=== PATIENT | female | born 1935 | race Caucasian/White ===

== ENCOUNTER 2017-05-19 12:40 | Emergency (ER) | payer MEDICARE, MEDICAID ==
--- NOTE | 2017-05-19 13:54 | RAD ---
FOUR VIEWS LEFT KNEE: COMPARISON: None. HISTORY: Left knee pain after fall. FINDINGS: Four views of the left knee show no evidence of acute fracture or dislocation. Moderate diffuse soft issue swelling is seen. No knee effusion is seen. Mild tricompartment osteophytes are seen consist ent with osteoarthritis. IMPRESSION: Left knee osteoarthritis without acute osseous abnormality. POS: [facility]
== END 2017-05-19 14:30 | disposition home or self-care (01) ==
LOC: MADERS 12:40
DX: S80.02XA Contusion of left knee, initial encounter (principal); I25.2 Old myocardial infarction; E11.9 Type 2 diabetes mellitus without complications; E78.00 Pure hypercholesterolemia, unspecified; Z86.73 Personal history of transient ischemic attack (TIA), and cerebral infarction without residual deficits; W19.XXXA Unspecified fall, initial encounter

== ENCOUNTER 2018-02-14 16:17 | Emergency (ER) | payer MEDICARE, MEDICAID ==
[2018-02-14] MEDS ORDERED: Acetaminophen/Codeine 30-300mg Tablet ONE (17:12)
== END 2018-02-14 17:25 | disposition home or self-care (01) ==
LOC: MADERS 16:17
DX: M54.5 Low back pain (principal); M10.9 Gout, unspecified; E03.9 Hypothyroidism, unspecified; I25.10 Atherosclerotic heart disease of native coronary artery without angina pectoris; I10 Essential (primary) hypertension; E78.00 Pure hypercholesterolemia, unspecified; I25.2 Old myocardial infarction; E11.9 Type 2 diabetes mellitus without complications; E78.5 Hyperlipidemia, unspecified; Z79.4 Long term (current) use of insulin; Z86.73 Personal history of transient ischemic attack (TIA), and cerebral infarction without residual deficits; Z79.899 Other long term (current) drug therapy
CPT/HCPCS: 36416; 99283

== ENCOUNTER 2019-01-24 22:47 | Emergency (ER) | payer MEDICARE, MEDICAID ==
[2019-01-24 23:26] LABS: #Basophils 0.2 thou/uL (0.0-0.2); #Eosinphils 0.2 thou/uL (0.0-0.7); #Lymphocytes 4.9 thou/uL (1.20-3.40); #Monocytes 0.4 thou/uL (0.11-0.59); #Neutrophils 6.4 thou/uL (1.40-6.50); %Basophils 1.3 % (0.0-1.0); %Eosinophils 1.7 % (0.0-10.0); %Lymphocytes 40.9 % (21.0-51.0); %Monocytes 3.1 % (0.0-10.0); Hemoglobin 15.2 g/dL (12.0-16.0); Mean Corpuscular HGB CONC 31.6 g/dL (32.0-36.0); Mean Corpuscular Hemoglobin 27.8 pg (27.0-31.0); Mean Corpuscular Volume 87.8 fL (78.0-98.0); Mean Platelet Volume 7.6 fL (7.4-10.4); Platelet Count 255 thou/uL (130-400); RBC Distribution Width 14.6 % (11.5-14.5); Red Blood Cell (RBC) Count 5.47 mill/uL (4.20-5.40)
[2019-01-24] MEDS ORDERED: cefTRIAXone\\ROCEPHIN 2 GM VIAL ONE (23:40)
[2019-01-24] MEDS ORDERED: Sodium Chloride 0.9% 2,000 ML ONE (23:40)
[2019-01-24] MEDS ORDERED: Sodium Chloride 0.9% 100 ML ONE (23:40)
--- NOTE | 2019-01-24 23:40 | RAD ---
XR Chest 1 View Portable HISTORY: Syncope. Altered mental status. COMPARISON: 01/07/2013 study. FINDINGS: Heart size is within normal limits. There are atherosclerotic changes of the aorta. The keila gs are clear of infiltrates. The bones are demineralized. IMPRESSION: No active intrathoracic disease. Stable chest.
[2019-01-25 00:07] LABS: ALT (SGPT) 11 U/L (8-55); AST (SGOT) 12 U/L (5-34); Albumin 3.9 g/dL (3.4-4.8); Alkaline Phosphatase 247 U/L (40-110); Anion Gap 19 mmol/L (10-20); BUN (Urea Nitrogen) 10 mg/dL (9.8-20.1); Bilirubin, Total 0.8 mg/dL (0.2-1.2); Calc. Creatinine Clearance 0 mL/min (70-130); Calcium 10.1 mg/dL (7.8-10.44); Carbon Dioxide 21 mmol/L (23-31); Chloride 95 mmol/L (98-107); Estimated GFR-MDRD 34; Globulin 3.6 g/dL (2.4-3.5); Glucose 406 mg/dL (83-110); Potassium 3.4 mmol/L (3.5-5.1); Protein, Total 7.5 g/dL (6.0-8.3); Sodium 132 mmol/L (136-145)
[2019-01-25 00:24] LABS: Bilirubin Negative (Negative); Blood, Urine Negative (Negative); Clarity Clear (Clear); Glucose, Urine (Dipstick) 500 mg/dL (Negative); Leukocyte Negative (Negative); Nitrite Negative (Negative); Protein, Urine (Dipstick) Negative (Neg-Trace)
[2019-01-25] MEDS ORDERED: Vancomycin HCl 500 MG VIAL ONE (01:00)
[2019-01-25] MEDS ORDERED: Sodium Chloride 0.9% 200 ML ONE (01:01)
== END 2019-01-25 01:31 | disposition short-term general hospital (02) ==
LOC: MADERS 22:47
DX: A41.9 Sepsis, unspecified organism (principal); N39.0 Urinary tract infection, site not specified; E03.9 Hypothyroidism, unspecified; E10.65 Type 1 diabetes mellitus with hyperglycemia; I25.10 Atherosclerotic heart disease of native coronary artery without angina pectoris; I25.2 Old myocardial infarction; E20.9 Hypoparathyroidism, unspecified; I10 Essential (primary) hypertension; E78.5 Hyperlipidemia, unspecified; E78.00 Pure hypercholesterolemia, unspecified; Z95.5 Presence of coronary angioplasty implant and graft; Z79.899 Other long term (current) drug therapy
CPT/HCPCS: 36415; 36416; 51702; 71045; 80053; 81003; 82010; 83605; 83880; 84443; 84484; 85025; 87040; 87086; 93005; 94760; 96361; 96365; 96367; J0696; J3370; J3490; J7050